=== PATIENT | female | born 1955 | race Caucasian/White ===

== ENCOUNTER 2018-02-25 00:44 | Outpatient (CLI) | payer MEDICAID, SELFPAY ==
--- NOTE | 2018-02-25 09:20 | DI.US_ITS ---
SYMPTOM/DIAGNOSIS: MICROSCOPIC HEMATURIA R31.29 RENAL ULTRASOUND: Comparison CT scan is 10/09/17 The right kidney measures 10 cm long. No renal mass or obstruction is seen. There is normal blood flow to the right kidney. There is a 7 mm shadowing focus in the lower pole of the right kidney suspicious for a nonobstructing stone. The left kidney measures 10 cm long. No renal mass, calculus, or obstruction is identified. There is normal blood flow to the left kidney. The pre-void urinary bladder volume is 70 cc. No intraluminal masses are seen. The bladder wall appears unremarkable. Both ureteral jets were visualized. The urinary bladder completely emptied upon voiding. IMPRESSION: 7 mm echogenic focus in the lower pole of the right kidney suggestive of a nonobstructing stone. 2. No evidence of hydronephrosis.
== END 2018-02-25 01:04 ==
PROVIDERS: PCP Family Medicine; Visit Provider Urology
DX: R31.29 Other microscopic hematuria (principal); R93.421 Abnormal radiologic findings on diagnostic imaging of right kidney
CPT/HCPCS: 76770

== ENCOUNTER 2018-02-25 16:41 | Outpatient (REF) | payer MEDICAID, SELFPAY | END 2018-02-25 17:01 | LOC: LBN 16:41 | PROVIDERS: PCP Family Medicine; Visit Provider Urology | DX: R31.29 Other microscopic hematuria (principal); R39.89 Other symptoms and signs involving the genitourinary system | CPT/HCPCS: 87086 ==

== ENCOUNTER 2018-08-29 17:03 | Emergency (ER) | payer MEDICAID, SELFPAY ==
[2018-08-29 17:10] VITALS: BP 135/80; PULSE 54; RESP 20; TEMP 37.5; O2SAT 98
--- NOTE | 2018-08-29 17:18 | W.ED.GENAD ---
Discharge Plan Disposition Patient Disposition: HOME Condition: Fair Discharge Details Chief Complaint: Urinary Clinical Impression: UTI (urinary tract infection) Primary Care Provider: Quentin Pyle ED Provider: Clarice Pollack Home Meds and New Rx's Prescriptions: New phenazopyridine [Pyridium] 200 mg tablet 200 mg PO TID PRN (Reason: pain) 0 Days Qty: 6 RF: 0 sulfamethoxazole-trimethoprim [Bactrim DS] 800-160 mg tablet 1 tab PO BID Qty: 14 RF: 0 Continued levothyroxine 25 MCG tablet 10 mg PO DAILY RF: 0 acetaminophen [Tylenol] 325 MG tablet 650 mg PO Q4H PRN PRNRF: 0 ibuprofen 400 MG tablet 400 mg PO QID PRN PRNRF: 0 Discharge Instructions Instructions: Urinary Tract Infection in Women (ED) Additional Instructions: Encourage hydration. Take antibiotic as prescribed, even if symptoms improve please take the entire course. May use Pyridium as prescribed to help symptom medic management. If you develop fever/chills, inability stay hydrated, back pain or other new/worsening symptoms please seek care urgently once again. Otherwise, please keep your follow-up appointment with your primary care and urologist Referrals: Quentin Pyle [Primary Care Provider] - Discharge Data Discharge Date/Time-TO BE ENTERED AT DEPARTURE: 08/29/18 18:05 Medical Decision Making Patient is a 63-year-old female presents today with recurrent UTI. Patient reports that for the past year she has had a UTI every 2 weeks on average. She reports that she is on multiple antibiotics. States that Bactrim has worked well for the past, has not had this since last winter. She reports that this was prescribed to her while she was in [place]. Patient does have a documented allergy to sulfa but has documentation reporting that she was on Bactrim previously without adverse reaction. She is currently on Macrobid, has been on this for the past 4 days without any improvement of her symptoms. She is currently endorsing dysuria, frequency, urgency. She denies any flank pain, no CVA tenderness on exam. She is tender directly over the bladder but she reports this is typical with her UTIs. She has upcoming point with her primary care as well as urologist to discuss her recurrent symptoms. No fevers or chills. I did obtain a postvoid residual as the patient does not feel that she is completely emptying, postvoid residuals noted to be 0. Patient was given strict return precautions. Prescription for Bactrim and Pyridium was given. I encouraged hydration. All other questions and concerns were addressed and she is in agreement this plan. HPI General Mode of arrival: ambulatory. Date/Time Provider Initiated Documentation: 08/29/18 17:04. Limitations to Documentation: no limitations. Information obtained by: patient, family and RN notes reviewed. History of Present Illness 63 year old F presents to the emergency department with the chief complaint of UTI symptoms, described as moderate, Quality is described as burning (with urination) and aching (over bladder, constant sense of fullness), and is localized to the abdomen. Patient reports no radiation. Patient started experiencing this day(s) and it has been constant. No relieving factors improve symptom(s), No exacerbating factors reported . Patient notes no other symptoms.; denies chest pain, cough, fever/chills, loss of appetite, nausea/vomiting, rash, shortness of breath and weakness. Patient did receive the following treatments prior to arrival, other (macrobid) Related Data Home Medications Medication Instructions Recorded Confirmed levothyroxine 10 mg PO DAILY 10/28/16 08/29/18 acetaminophen [Tylenol] 650 mg PO Q4H PRN PRN tab 11/01/16 08/29/18 ibuprofen 400 mg PO QID PRN PRN tab 11/01/16 08/29/18 phenazopyridine [Pyridium] 200 mg PO TID PRN 0 Days #6 tab 08/29/18 sulfamethoxazole-trimethoprim 1 tab PO BID #14 tab 08/29/18 [Bactrim DS] Previous Rx's Medication Instructions Recorded acetaminophen [Tylenol] 650 mg PO Q4H PRN PRN tab 11/01/16 ibuprofen 400 mg PO QID PRN PRN tab 11/01/16 phenazopyridine [Pyridium] 200 mg PO TID PRN 0 Days #6 tab 08/29/18 sulfamethoxazole-trimethoprim 1 tab PO BID #14 tab 08/29/18 [Bactrim DS] Allergies Allergy/AdvReac Type Severity Reaction Status Date / Time Sulfa (Sulfonamide Allergy Severe Swelling/Ed Unverified 08/29/18 17:16 Antibiotics) triny General Stated Complaint: Urinary JOVANY: 3 Review of Systems Constitutional Reports as per HPI, Denies chills, Denies fever(s) and Denies poor appetite Cardiovascular Denies chest pain Respiratory Denies cough Gastrointestinal Denies abdominal pain, Denies change in bowel habits, Denies nausea and Denies vomiting Genitourinary Reports as per HPI Musculoskeletal Reports as per HPI and Denies back pain Integumentary/Breasts Reports as per HPI and Denies rash [facility] Medical History Urinary tract infection (Acute) Crohns disease (Chronic) Kidney stones (Chronic) Parastomal hernia (10/28/16) Surgical History History of resection of small bowel (Acute) Social History Smoking/Tobacco Use Status: Former Tobacco Use Alcohol Intake: never Substance use type: does not use Do you feel safe at home: Yes Do you feel safe in your relationship?: Yes Exam Const General: cooperative, healthy appearing, comfortable, no acute distress, well developed and well groomed Nutritional Appearance: average body habitus and well nourished Orientation: alert and awake Resp Effort & Inspection: normal respiratory effort and no respiratory distress Auscultation: clear to auscultation bilaterally, no rales, no rhonchi and no wheezes Cardio Rate: regular rate Rhythm: regular rhythm Heart Sounds: S1 normal and S2 normal GI Inspection: normal to inspection (patient has a colostomy, no abnormality noted with this) Palpation: soft, no hepatosplenomegaly, not firm, no guarding, not rigid and tender (over bladder) Back/Spine/Pelvis Back: no CVA tenderness Skin General skin exam: no rashes or lesions noted Trauma: no lacerations or abrasions Neuro General: alert and awake Cognition: normal cognition Speech: speech normal Gait: normal gait Psych Appearance: grossly normal and well kempt Mental Status: mental status grossly normal Speech and Movement: speech and movement normal Course Vital Signs Temperature 37.5 C 08/29/18 17:10 Pulse 54 L 08/29/18 17:10 Respiratory Rate 20 08/29/18 17:10 Blood Pressure 135/80 08/29/18 17:10 Pulse Oximetry 98 08/29/18 17:10 Temperature 37.5 C 08/29/18 17:10 Temperature Source Temporal Artery Scan 08/29/18 17:10 Pulse 54 L 08/29/18 17:10 Respiratory Rate 20 08/29/18 17:10 Respiratory Effort Non-Labored 08/29/18 17:10 Blood Pressure 135/80 08/29/18 17:10 Pulse Oximetry 98 08/29/18 17:10 Oxygen Delivery Method Room Air 08/29/18 17:10 Oxygen Flow Rate 0 08/29/18 17:10 Pain Level 4 08/29/18 17:10
[2018-08-29 17:30] LABS: Bilirubin Negative (Negative); Blood Large (Negative); Clarity Clear; Glucose Negative (Negative); Ketones 15 mg/dL (Negative); Leukocyte Esterase Small (Negative); Nitrite Negative (Negative); Specific Gravity >= 1.030 (1.005-1.025); Urobilinogen 0.2 EU/dL (Up TO 0.2); pH 5.5 (5-8)
[2018-08-29 17:49] LABS: Bacteria Few HPF (Negative); C & S Indicated? Yes; Casts Negative LPF (Negative); Crystals Negative HPF (Negative); Epithelial Cells Negative HPF (Negative); Mucus Negative (Negative); Other Cells Negative (Negative); RBC >50 (0-2); WBC >50 HPF (0-5)
[2018-08-29 18:11] VITALS: BP 135/80; PULSE 54; RESP 20; TEMP 37.5; O2SAT 98
--- NOTE | 2018-08-29 19:00 | ED.GENADUL_ITS ---
Discharge Plan Disposition Patient Disposition: HOME Condition: Fair Discharge Details Chief Complaint: Urinary Clinical Impression: UTI (urinary tract infection) Primary Care Provider: Quentin Pyle ED Provider: Clarice Pollack Home Meds and New Rx's Prescriptions: New phenazopyridine [Pyridium] 200 mg tablet 200 mg PO TID PRN (Reason: pain) 0 Days Qty: 6 RF: 0 sulfamethoxazole-trimethoprim [Bactrim DS] 800-160 mg tablet 1 tab PO BID Qty: 14 RF: 0 Continued levothyroxine 25 MCG tablet 10 mg PO DAILY RF: 0 acetaminophen [Tylenol] 325 MG tablet 650 mg PO Q4H PRN PRNRF: 0 ibuprofen 400 MG tablet 400 mg PO QID PRN PRNRF: 0 Discharge Instructions Instructions: Urinary Tract Infection in Women (ED) Additional Instructions: Encourage hydration. Take antibiotic as prescribed, even if symptoms improve please take the entire course. May use Pyridium as prescribed to help symptom medic management. If you develop fever/chills, inability stay hydrated, back pain or other new/worsening symptoms please seek care urgently once again. Otherwise, please keep your follow-up appointment with your primary care and urologist Referrals: Quentin Pyle [Primary Care Provider] - Discharge Data Discharge Date/Time-TO BE ENTERED AT DEPARTURE: 08/29/18 18:05 Medical Decision Making Patient is a 63-year-old female presents today with recurrent UTI. Patient reports that for the past year she has had a UTI every 2 weeks on average. She reports that she is on multiple antibiotics. States that Bactrim has worked w [facility] for the past, has not had this since last winter. She reports that this was prescribed to her while she was in [place]. Patient does have a documented allergy to sulfa but has documentation reporting that she was on Bactrim previously without adverse reaction. She is currently on Macrobid, has been on this for the past 4 days without any improvement of her symptoms. She is currently endorsing dysuria, frequency, urgency. She denies any flank pain, no CVA tenderness on exam. She is tender directly over the bladder but she reports this is typical with her UTIs. She has upcoming point with her primary care as well as urologist to discuss her recurrent symptoms. No fevers or chills. I did obtain a postvoid residual as the patient does not feel that she is completely emptying, postvoid residuals noted to be 0. Patient was given strict return precautions. Prescription for Bactrim and Pyridium was given. I encouraged hydration. All other questions and concerns were addressed and she is in agreement this plan. HPI General Mode of arrival: ambulatory . Date/Time Provider Initiated Documentation: 08/29/18 17:04 . Limitations to Documentation: no limitations . Information obtained by: patient, family and RN notes reviewed . History of Present Illness 63 year old F presents to the emergency department with the chief complaint of UTI symptoms, described as moderate, Quality is described as burning (with urination) and aching (over bladder, constant sense of fullness), and is localized to the abdomen. Patient reports no radiation. Patient started experiencing this day(s) and it has been constant. No relieving factors improve symptom(s), No exacerbating factors reported . Patient notes no other symptoms.; denies chest pain, cough, fever/chills, loss of appetite, nausea/vomiting, rash, shortness of breath and weakness. Patient did receive the following treatments prior to arrival, other (macrobid) Related Data Home Medications Medication Instructions Recorded Confirmed levothyroxine 10 mg PO DAILY 10/28/16 08/29/18 acetaminophen [Tylenol] 650 mg PO Q4H PRN PRN tab 11/01/16 08/29/18 ibuprofen 400 mg PO QID PRN PRN tab 11/01/16 08/29/18 phenazopyridine [Pyridium] 200 mg PO TID PRN 0 Days #6 tab 08/29/18 sulfamethoxazole-trimethoprim 1 tab PO BID #14 tab 08/29/18 [Bactrim DS] Previous Rx's Medication Instructions Recorded acetaminophen [Tylenol] 650 mg PO Q4H PRN PRN tab 11/01/16 ibuprofen 400 mg PO QID PRN PRN tab 11/01/16 phenazopyridine [Pyridium] 200 mg PO TID PRN 0 Days #6 tab 08/29/18 sulfamethoxazole-trimethoprim 1 tab PO BID #14 tab 08/29/18 [Bactrim DS] Allergies Allergy/AdvReac Type Severity Reaction Status Date / Time Sulfa (Sulfonamide Allergy Severe Swelling/Ed Unverified 08/29/18 17:16 Antibiotics) triny General Stated Complaint: Urinary JOVANY: 3 Review of Systems Constitutional Reports as per HPI, Denies chills, Denies fever(s) and Denies poor appetite Cardiovascular Denies chest pain Respiratory Denies cough Gastrointestinal Denies abdominal pain, Denies change in bowel habits, Denies nausea and Denies vomiting Genitourinary Reports as per HPI Musculoskeletal Reports as per HPI and Denies back pain Integumentary/Breasts Reports as per HPI and Denies rash [facility] Medical History Urinary tract infection (Acute) Crohns disease (Chronic) Kidney stones (Chronic) Parastomal hernia (10/28/16) Surgical History History of resection of small bowel (Acute) Social History Smoking/Tobacco Use Status: Former Tobacco Use Alcohol Intake: never Substance use type: does not use Do you feel safe at home: Yes Do you feel safe in your relationship?: Yes Exam Const General: cooperative, healthy appearing, comfortable, no acute distress, well developed and well groomed Nutritional Appearance: average body habitus and well nourished Orientation: alert and awake Resp Effort & Inspection: normal respiratory effort and no respiratory distress Auscultation: clear to auscultation bilaterally, no rales, no rhonchi and no wheezes Cardio Rate: regular rate Rhythm: regular rhythm Heart Sounds: S1 normal and S2 normal GI Inspection: normal to inspection (patient has a colostomy, no abnormality noted with this) Palpation: soft, no hepatosplenomegaly, not firm, no guarding, not rigid and tender (over bladder) Back/Spine/Pelvis Back: no CVA tenderness Skin General skin exam: no rashes or lesions noted Trauma: no lacerations or abrasions Neuro General: alert and awake Cognition: normal cognition Speech: speech normal Gait: normal gait Psych Appearance: grossly normal and well kempt Mental Status: mental status grossly normal Speech and Movement: speech and movement normal Course Vital Signs Temperature 37.5 C 08/29/18 17:10 Pulse 54 L 08/29/18 17:10 Respiratory Rate 20 08/29/18 17:10 Blood Pressure 135/80 08/29/18 17:10 Pulse Oximetry 98 08/29/18 17:10 Temperature 37.5 C 08/29/18 17:10 Temperature Source Temporal Artery Scan 08/29/18 17:10 Pulse 54 L 08/29/18 17:10 Respiratory Rate 20 08/29/18 17:10 Respiratory Effort Non-Labored 08/29/18 17:10 Blood Pressure 135/80 08/29/18 17:10 Pulse Oximetry 98 08/29/18 17:10 Oxygen Delivery Method Room Air 08/29/18 17:10 Oxygen Flow Rate 0 08/29/18 17:10 Pain Level 4 08/29/18 17:10
== END 2018-08-29 18:05 | disposition home or self-care (01) ==
PROVIDERS: Emergency Provider Physician Assistant; PCP Family Medicine
DX: N39.0 Urinary tract infection, site not specified (principal); Z87.440 Personal history of urinary (tract) infections
CPT/HCPCS: 99283; 81003; 81015; 87086

== ENCOUNTER 2018-12-01 10:04 | Outpatient (CLI) | payer MEDICAID, SELFPAY ==
--- NOTE | 2018-12-01 09:53 | DI.RAD_ITS ---
SYMPTOM/DIAGNOSIS: KNEE PAIN LEFT KNEE: 12/01 Three views were obtained. There is chondrocalcinosis of the tibiofemoral joints. Mild marginal osteophyte formation noted involving the joints of the knee. Moderate narrowing of medial tibial femoral cartilaginous joint space noted. 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
== END 2018-12-01 10:24 ==
PROVIDERS: PCP Family Medicine; Visit Provider Student in an Organized Health Care Education/Training Program
DX: M25.562 Pain in left knee (principal); M17.12 Unilateral primary osteoarthritis, left knee
CPT/HCPCS: 73562

== ENCOUNTER 2019-01-23 00:12 | Outpatient (CLI) | payer MEDICAID, SELFPAY ==
--- NOTE | 2019-01-23 09:37 | DI.US_ITS ---
EXAM: US RENAL CLINICAL HISTORY: NEPHROLITHIASIS, N20.0. TECHNIQUE: Ultrasound performed using standard protocol. COMPARISON: No exams were available for comparison FINDINGS: Right kidney measures 10.5 x 5.7 x 5.5 cm, the left kidney measures 10.7 x 4.3 x 4.3 cm. The prevoid bladder contains 58 cc, the postvoid bladder contains 0. Note is made of mild bilateral hydronephro sis, right greater than left. The ureteral jets are obscured by bowel motion. IMPRESSION: Mild bilateral hydronephrosis is demonstrated. Right greater than left.
== END 2019-01-23 00:32 ==
PROVIDERS: PCP Family Medicine; Visit Provider Urology
DX: N20.0 Calculus of kidney (principal); N13.30 Unspecified hydronephrosis
CPT/HCPCS: 76770

== ENCOUNTER 2019-02-13 00:44 | Outpatient (CLI) | payer MEDICAID, SELFPAY ==
--- NOTE | 2019-02-13 15:39 | DI.US_ITS ---
EXAM: US RENAL CLINICAL HISTORY: KIDNEY STONES N20.0 TECHNIQUE: Ultrasound performed using standard protocol. COMPARISON: ABD AND PELVIS WO CONTRAST from 10/09/2017 US RENAL from 01/23/2019 FINDINGS: The right kidney measures 9.5 cm in length. No stones or hydronephrosis is seen. The left kidney me asures 10.3 cm in length. A parapelvic cyst is again noted. No hydronephrosis or stone is seen. Th e prevoid bladder volume measured 58 cc. There is an 8 cc postvoid residual. No bladder calcificati on is seen. Ureteral jets were not visualized. IMPRESSION: Left parapelvic renal cyst. Resolution of hydronephrosis.
== END 2019-02-13 01:04 ==
PROVIDERS: PCP Family Medicine; Visit Provider Urology
DX: N20.0 Calculus of kidney (principal); N28.1 Cyst of kidney, acquired
CPT/HCPCS: 76770